=== PATIENT | female | born 1960 | race Two or more races ===

== ENCOUNTER 2017-08-08 05:38 | Inpatient (IN) | payer BC ==
[~2017-08-08] VITALS: Ht 152.4 cm; Wt 78.9 kg
[2017-08-08] VITALS (13 sets, daily range): BP systolic 120–144; BP diastolic 69–78
[2017-08-08] MEDS ORDERED: oxyCONTIN 20mg tab ORAL ONE (06:00)
[2017-08-08] MEDS ORDERED: ceFAZolin 1gm in D5W 55ml IVP ONE (06:00)
[2017-08-08] MEDS ORDERED: celeBREX 200mg Cap **SURGERY PATIENTS ONLY ORAL ONE ×3 (06:00→06:03)
[2017-08-08] MEDS ORDERED: CRESTOR10 M1 ORAL (06:19)
[2017-08-08] MEDS ORDERED: LEXAPRO5 MG ORAL (06:19)
[2017-08-08] MEDS ORDERED: NeoSporin Gu Irrig 1ml Amp IRRIG ONE (06:28)
[2017-08-08] MEDS ORDERED: Bacitracin 50000 Units Vial ONE (06:28)
[2017-08-08] MEDS ORDERED: cloNIDine 1000mcg/10ml inj ONE (06:46)
[2017-08-08] MEDS ORDERED: Bupivacaine 0.5% Inj 30 ml vial INJ ONE (06:47)
--- NOTE | 2017-08-08 06:54 | Pre-Procedure Note/Attestation ---
Pre-Procedure Note/Attestation Complete Prior to Procedure Planned Procedure: right Procedure Narrative: Rt tka Indications for Procedure Pre-Operative Diagnosis: Rt knee arthritis Attestation I attest that I discussed the nature of the procedure; its benefits; risks and complications; and alternatives (and the risks and benefits of such alternatives ), prior to the procedure, with the patient (or the patient's legal international representative). I attest that, if there was a reasonable possibility of needing a blood transfusion, the patient (or the patient's legal international representative) was given the [facility] standardized written summary, pursuant to the Loy Yarely Blood Safety Act ([place] Health and Safety Code # 1645, as amended). I attest that I re-evaluated the patient just prior to the surgery and that there has been no change in the patient's H&P, except as documented below: NONE BRIANA CALVIN Aug 08, 2017 06:54
[2017-08-08] MEDS ORDERED: Ropivacaine 5mg/ml Vial 20ml INJ ONE (06:56)
[2017-08-08] MEDS ORDERED: Tranexamic Acid 1,000 MG in NS 65 ML IVPB ONE (07:11)
[2017-08-08] MEDS ORDERED: Norco 7.5mg/325mg tab ORAL PRN ×2 (07:15→08:00)
[2017-08-08] MEDS ORDERED: Milk of Magnesia 30ml Ud ORAL PRN (07:15)
[2017-08-08] MEDS ORDERED: Propofol 1,000mg/ 100ml btl IV ONE (07:30)
[2017-08-08] MEDS ORDERED: LR 1000ml 1,000 ML IVLG SCH (07:51)
--- NOTE | 2017-08-08 07:51 | Anethesia Preoperative Eval ---
Anesthesia Pre-op PMH/ROS General Date of Evaluation: Aug 08, 2017 Time of Evaluation: 06:56 Anesthesiologist: Jennifer ASA Score: ASA 3 Mallampati Score Class I : Soft palate, uvula, fauces, pillars visible Class II: Soft palate, uvula, fauces visible Class III: Soft palate, base of uvula visible Class IV: Only hard plate visible Mallampati Classification: Class II Surgeon: Neva Diagnosis: R Knee Pain Surgical Procedure: R Knee Total Arthroplasty Anesthesia History: none Family History: no anesthesia problems Allergies: Coded Allergies: No Known Allergies (Unverified , 08/07/17) Medications: see eMAR Past Medical History Cardiovascular: Reports: HTN, other - HL Neurologic/Psychiatric: Reports: depression/anxiety Other: obesity - BMI 34 PSxH Narrative: Hernia X2, R shoulder SX, R Bunionectomy Anesthesia Pre-op Phys. Exam Physician Exam Last Vital Signs Date Time Temp Pulse Resp B/P (MAP) Pulse Ox O2 Delivery O2 Flow Rate FiO2 08/08/17 06:17 98.7 82 17 142/77 98 Room Air Constitutional: NAD Neurologic: CN 2-12 intact Cardiovascular: RRR Respiratory: CTA Gastrointestinal: S/NT/ND Airway Exam Mallampati Score: Class II MO: limited ROM: limited Teeth: intact Anesthesia Pre-op A/P Risk Assessment & Plan Assessment: ASA 3 Plan: GA, Spinal, R Adductor Block Status Change Before Surgery: No Pre-Antibiotics Dru Gram Ancef Iv Given Within 1 Hr of Incision: Yes Time Given: 07:24 Hugo Rodriguez MD Aug 08, 2017 07:51
--- NOTE | 2017-08-08 07:53 | Immediate Post-Op Evaluation ---
Immediate Post-Op Evalulation Immediate Post-Op Evalulation Procedure: R Knee Total Arthroplasty Date of Evaluation: Aug 08, 2017 Time of Evaluation: 09:49 IV Fluids: 900 LR Blood Products: 0 Estimated Blood Loss: 25 Urinary Output: 200 Blood Pressure Systolic: 144 Blood Pressure Diastolic: 74 Pulse Rate: 90 Respiratory Rate: 16 O2 Sat by Pulse Oximetry: 100 Temperature (Fahrenheit): 98.6 Pain Score (1-10): 1 Nausea: No Vomiting: No Complications 0 Patient Status: awake, reacts, patent, extubated, none Hydration Status: adequate Dru Gram Ancef IV Given Within 1 Hr of Incision: Yes Time Given: 07:24 Hugo Rodriguez MD Aug 08, 2017 07:53
[2017-08-08] MEDS ORDERED: LORazepam Inj 2mg/ml 1ml IV PRN (08:00)
[2017-08-08] MEDS ORDERED: Ketorolac 60mg Inj IV PRN (08:00)
[2017-08-08] MEDS ORDERED: Norco 5mg/325mg tab ORAL PRN (08:00)
[2017-08-08] MEDS ORDERED: oxyCODONE HCL/Acetaminophen 5/325mg ORAL PRN (08:00)
[2017-08-08] MEDS ORDERED: Midazolam 2mg/2ml Inj IVP PRN (08:00)
[2017-08-08] MEDS ORDERED: Metoclopramide 10mg/2ml Inj IVP PRN (08:00)
[2017-08-08] MEDS ORDERED: Hydromorphone 0.5mg/0.5ml inj IVP PRN (08:00)
[2017-08-08] MEDS ORDERED: fentaNYL 100 mcg/2 mL IV PRN (08:00)
[2017-08-08] MEDS ORDERED: DiphenhydrAMINE 50mg/ml Inj IVP PRN (08:00)
[2017-08-08] MEDS ORDERED: Meperidine 25mg/0.5ml Inj (FOR RIGORS ONLY) IV PRN (08:00)
[2017-08-08] MEDS ORDERED: Atropine Inj 1mg/10ml Syr IV PRN (08:00)
[2017-08-08] MEDS ORDERED: Ketorolac 30mg Inj IV PRN (08:00)
[2017-08-08] MEDS ORDERED: Docusate 100mg cap ORAL SCH (09:00)
--- NOTE | 2017-08-08 09:28 | Brief Operative Note ---
Immediate Post Operative Note Operative Note Chief Complaint: rt knee pain Pre-op Diagnosis: rt knee arthritis Procedure: rt tka Post-op Diagnosis: same as pre-op Findings: consistent w/pre-op dx studies Surgeon: md ness Hairspring Assembler: negar salmeron Anesthesiologist: md natalie Anesthesia: general Specimen: yes Complications: none Condition: stable Fluids: NS Estimated Blood Loss: minimal Drains: none Implant(s) used?: Yes - Garcia and NephTRAY Oliveira Aug 08, 2017 09:28
--- NOTE | 2017-08-08 11:48 | Diagnostic Imaging Report ---
Indication: Pain 2 views of the right knee were obtained. Findings: Total knee prosthesis is present. Soft tissue and swelling noted indicative of the recent surgery. Alignment and position appear satisfactory. There is no fracture or other complications appreciated. Impression: Status post cemented total knee arthroplasty
[2017-08-08] MEDS: D5 1/2NS w/KCl 20mEq 1,000 ML IV SCH ×2 (12:20→22:33)
[2017-08-08] MEDS: oxyCONTIN 20mg tab ORAL SCH ×2 (12:41→21:23)
[2017-08-08] MEDS: Docusate 100mg cap ORAL SCH ×2 (12:41→18:00)
[2017-08-08] MEDS: ceFAZolin sod 1 GM in D5W 55 ML IV SCH ×2 (15:29→22:32)
--- NOTE | 2017-08-08 19:15 | Operative Note - Dictated ---
DATE OF OPERATION: 08/08/2017 Preoperative Diagnosis: Right knee end-stage arthritis with bone to bone medial compartmental wear as well as patellofemoral wear. Postoperative Diagnosis: Right knee end-stage arthritis with bone to bone medial compartment wear as well as patellofemoral wear. Procedure: Right total knee arthroplasty using Garcia and Nephew LEGION knee with size 5 Oxinium femur, size 4 tibial component, size 35 mm all-poly patellar component as well as 11 mm ultra cross-linked tibial insert. SURGEON: Dominguez Hooks M.D. ADVERTISING JOB TITLES: Leonora Hernandes PA-C. ANESTHESIOLOGIST: Hugo Rodriguez M.D. Anesthesia: Spinal anesthesia combined with adductor block for postoperative pain management. ESTIMATED BLOOD LOSS: Less than 50 mL. TOURNIQUET TIME: 70 minutes. COMPLICATIONS: None. Brief History: The patient is a pleasant 57-year-old female, who has had end-stage arthritis of the right knee. She has had severe pain, treated nonoperatively with physical therapy, anti-inflammatories as well as injections and she continued to have significant functional deficits and pain. After full discussion of the risks and benefits of surgery and complications associated with it including infection, bleeding, neurovascular complication, possibility of continued pain, possibility of loss of motion, possibility of need for revision surgery, possibility of infection requiring resection arthroplasty, possibility of DVT, PE, and other complications that may arise, she opted for surgical treatment as described above. Operative Procedure: The patient was brought to the operating table and was placed supine. All pressure points were well padded. Spinal anesthesia was induced and the right leg adductor block was performed. The right leg was then prepped and draped in usual sterile fashion and the right leg was exsanguinated. Tourniquet was inflated to 275 mmHg. Standard approach to the anterior knee was undertaken. The medial parapatellar arthrotomy was performed and the medial and lateral meniscectomy was performed. The deep fibers of MCL were released for alignment purposes. At this point, the ACL and PCL were resected and knee was flexed and patella was everted. Intramedullary access into the femur was obtained and intramedullary guide was placed in. A distal femoral cut was performed with 5 degrees of valgus. Once this was completed, measurements were made and size 5 appeared to be the right size. Using posterior reference guide, the femoral cutting guide was placed in about 3 degrees of external rotation and anterior, posterior, and chamfer cuts were performed without any complications. Once this was completed, trial femur was applied and there was excellent fit. This was lateralized slightly and the central notch was then reamed and using a box osteotome, the bone was resected. At this point, there was excellent fit of the femoral component and it was slightly lateralized. At this point, care was given to the tibia. Posterior, medial, and lateral retractors were placed in. The anterior tibial crest was palpated and marked for alignment purposes. The alignment was marked and using an extramedullary guide, the anatomical axis and posterior slope was recreated. The varus and valgus axis was checked with the extramedullary guide. A 9 mm was taken off the least involved side, which was the lateral side. A tibial cut was performed without any complication. At this point, multiple osteophytes from posterior aspect of the femur were removed and there were multiple loose fragments that were removed. Once this was completed, measurements were made and size 4 tibia appeared to be the right size. This was placed in about 3 degrees of external rotation and at this point, the tibial plate was then punched and central peg was punched without any complications. At this point, trialing was performed with femur and tibia in place with initially 9 mm and then an 11 mm tibial insert. There was full flexion, full extension, and excellent stability at zero, 30 degrees, 45 degrees, and 90 degrees with 11 mm poly. At this point, the trial components were removed and care was given to the patella. The patella measured 25 mm. At this point, a freehand patellar cut was performed without any complications. Approximately 14 mm patella was remaining. At this point, the patella measurements were made and 35 mm patella component appeared to be the right size. The peg holes were drilled and a trial was applied. At this point, the tibial component, femoral component, and patellar component along with an 11 mm poly were trialed. There was excellent range of motion and stability as described previously and there was excellent patellofemoral tracking. At this point, all trial components were removed. The knee was thoroughly irrigated using copious amounts of irrigation with Simpulse irrigation. The cement was mixed and the tibial component, femoral component, and patellar components were cemented without any complication. Again trialing was performed and 11 mm poly insert appeared to be the right size. Therefore, the #11 mm poly was then placed and locked in without any complication. All excess cement was removed and before insertion of poly, the knee was thoroughly irrigated again with Simpulse irrigation. Once this was completed, wounds were thoroughly irrigated using copious amount of fluid. The tourniquet was deflated and minimal amount of bleeders that were present were coagulated using electrocautery. The extensor mechanism was closed using #1 interrupted Vicryl suture. Subcutaneous tissue was closed using 2-0 Vicryl suture. Skin was closed using 3-0 Monocryl suture. A Dermabond was applied and sterile dressing was applied. The patient was taken to recovery room in stable condition. All lap counts and instrument counts were correct. Dominguez Hooks M.D. DR: BOBBY JOB#: [id number] CC: RINA
[2017-08-08] MEDS: Enoxaparin 30mg Inj SUBQ SCH (21:24)
[2017-08-09 00:35] VITALS: BP 108/66
[2017-08-09 04:30] VITALS: BP 132/79
--- NOTE | 2017-08-09 06:57 | 48 Hour Post Anesthesia Eval ---
Post Anesthesia Evaluation Procedure: R Knee Total Arthroplasty Date of Evaluation: Aug 09, 2017 Time of Evaluation: 06:33 Blood Pressure Systolic: 132 0: 74 Pulse Rate: 85 Respiratory Rate: 18 Temperature (Fahrenheit): 98.1 O2 Sat by Pulse Oximetry: 94 Airway: patent Nausea: No Vomiting: No Pain Intensity: 2 Hydration Status: adequate Cardiopulmonary Status: Stable Mental Status/LOC: patient returned to baseline Follow-up Care/Observations: 0 Post-Anesthesia Complications: 0 Follow-up care needed: N/A Hugo Rodriguez MD Aug 09, 2017 06:57
[2017-08-09 07:03] LABS: BASOPHILS % (AUTO) 0.3 % (0.0-2.0); LYMPHOCYTES % (AUTO) 12.4 % (20.0-45.0); MEAN CORPUSCULAR HGB CONC 33.8 G/DL (32.0-36.0); MEAN CORPUSCULAR VOLUME 89 FL (80-99); MEAN PLATELET VOLUME 6.4 FL (6.5-10.1); MONOCYTES % (AUTO) 10.6 % (1.0-10.0); NEUTROPHILS % (AUTO) 76.7 % (45.0-75.0); PLATELET COUNT 269 K/UL (150-450); RED BLOOD COUNT 3.79 M/UL (4.20-5.40); WHITE BLOOD COUNT 11.2 K/UL (4.8-10.8)
[2017-08-09 07:27] LABS: ALANINE AMINOTRANSFERASE 14 U/L (3-33); ALBUMIN/GLOBULIN RATIO 1.5 (1.0-2.7); ANION GAP 10 (5-15); ASPARTATE AMINO TRANSFERASE 14 U/L (5-40); CALCIUM 8.6 mg/dL (8.6-10.2); CARBON DIOXIDE 26 mEQ/L (20-30); CHLORIDE 101 mEQ/L (98-107); CREATININE 0.7 mg/dL (0.5-0.9); GLOMERULAR FILTRATION RATE > 60 mL/min (>60); HEMOLYSIS 0; POTASSIUM 5.4 mEQ/L (3.4-4.9); SODIUM 137 mEQ/L (135-145); TOTAL PROTEIN 6.3 g/dL (6.6-8.7)
[2017-08-09] MEDS: Docusate 100mg cap ORAL SCH ×3 (07:57→17:16)
[2017-08-09 08:00] VITALS: BP 116/68
[2017-08-09] MEDS: celeBREX 200mg Cap **SURGERY PATIENTS ONLY ORAL SCH (08:00)
[2017-08-09] MEDS: oxyCONTIN 20mg tab ORAL SCH ×2 (08:01→21:00)
[2017-08-09] MEDS: Enoxaparin 30mg Inj SUBQ SCH ×2 (08:07→21:00)
--- NOTE | 2017-08-09 08:17 | Orthopedic Progress Note ---
Orthopedic - Progress Note Subjective Symptoms: c/o post-op knee pain Additional Comments working with PT Objective Vital Signs Laboratory Tests Test 08/09/17 04:50 White Blood Count 11.2 K/UL (4.8-10.8) H Red Blood Count 3.79 M/UL (4.20-5.40) L Hemoglobin 11.4 G/DL (12.0-16.0) L Hematocrit 33.6 % (37.0-47.0) L Mean Corpuscular Volume 89 FL (80-99) Mean Corpuscular Hemoglobin 30.0 PG (27.0-31.0) Mean Corpuscular Hemoglobin Concent 33.8 G/DL (32.0-36.0) Red Cell Distribution Width 12.0 % (11.6-14.8) Platelet Count 269 K/UL (150-450) Mean Platelet Volume 6.4 FL (6.5-10.1) L Neutrophils (%) (Auto) 76.7 % (45.0-75.0) H Lymphocytes (%) (Auto) 12.4 % (20.0-45.0) L Monocytes (%) (Auto) 10.6 % (1.0-10.0) H Eosinophils (%) (Auto) 0.0 % (0.0-3.0) Basophils (%) (Auto) 0.3 % (0.0-2.0) Sodium Level 137 mEQ/L (135-145) Potassium Level 5.4 mEQ/L (3.4-4.9) H Chloride Level 101 mEQ/L (98-107) Carbon Dioxide Level 26 mEQ/L (20-30) Anion Gap 10 (5-15) Blood Urea Nitrogen 24 mg/dL (7-23) H Creatinine 0.7 mg/dL (0.5-0.9) Estimat Glomerular Filtration Rate > 60 mL/min (>60) Glucose Level 135 mg/dL (74-106) H Calcium Level 8.6 mg/dL (8.6-10.2) Total Bilirubin 0.2 mg/dL (0.0-1.2) Aspartate Amino Transf (AST/SGOT) 14 U/L (5-40) Alanine Aminotransferase (ALT/SGPT) 14 U/L (3-33) Alkaline Phosphatase 75 U/L (35-104) Total Protein 6.3 g/dL (6.6-8.7) L Albumin 3.8 g/dL (3.5-5.2) Globulin 2.5 g/dL Albumin/Globulin Ratio 1.5 (1.0-2.7) Last 24 Hour Vital Signs Date Time Temp Pulse Resp B/P (MAP) Pulse Ox O2 Delivery O2 Flow Rate FiO2 08/09/17 06:57 85 18 94 08/09/17 04:30 98.1 85 18 132/79 94 Room Air 08/09/17 00:35 98.7 82 18 108/66 96 Room Air 08/08/17 20:10 98.3 86 17 120/74 94 Nasal Cannula 2.0 08/08/17 15:49 97.6 89 20 130/76 97 Nasal Cannula 2.0 08/08/17 12:30 97.4 88 20 132/75 94 Nasal Cannula 2.0 08/08/17 12:02 97.3 95 20 131/74 95 Nasal Cannula 2.0 08/08/17 10:35 98.4 89 15 138/69 97 Nasal Cannula 3.0 08/08/17 10:30 91 14 129/74 97 Nasal Cannula 3.0 08/08/17 10:20 90 14 129/74 96 Nasal Cannula 3.0 08/08/17 10:10 90 15 139/78 96 Nasal Cannula 3.0 08/08/17 10:00 95 15 139/70 98 Nasal Cannula 3.0 08/08/17 09:50 91 12 142/75 98 Simple Mask 6.0 08/08/17 09:45 85 13 137/74 98 Simple Mask 6.0 08/08/17 09:39 90 16 100 08/08/17 09:38 98.7 90 15 144/74 99 Simple Mask 6.0 Wound: clean, dry, intact Drains: none Neuro Status: normal Vascular Status: normal Additional Comments Xray reviewed: excellent alignment and placement Assessment Post-op Diagnosis POD 1 Procedure Performed rt tka Plan Plan: PT, pain management, discharge plan - to rehab on monday. pt prefers [facility] Aug 09, 2017 08:17
[2017-08-09] MEDS ORDERED: D5 1/2NS 1,000 ML IV SCH (09:00)
[2017-08-09] MEDS ORDERED: Lidocaine 1% Plain 30 ml INJ ONE (10:51)
[2017-08-09] MEDS ORDERED: NS Irrig 1000ml ONE (10:51)
[2017-08-09] MEDS ORDERED: Alfentanil 2ml Inj ONE (10:51)
[2017-08-09] MEDS ORDERED: Sterile Water Irrig 1000ml IRRIG ONE (10:51)
[2017-08-09] MEDS ORDERED: Propofol 200mg/20ml IV ONE (10:51)
[2017-08-09] MEDS ORDERED: Dexamethasone 4mg/ml vial ONE (11:10)
[2017-08-09] MEDS ORDERED: Midazolam 2mg/2ml Inj ONE (11:11)
[2017-08-09 12:00] VITALS: BP 128/62
[2017-08-09] MEDS: Norco 5mg/325mg tab ORAL PRN (12:41)
[2017-08-09 16:00] VITALS: BP 111/64
--- NOTE | 2017-08-09 17:54 | History & Physical ---
History and Physical History & Physicial Dictated for Int Med-Dr Leon no. [id number]. BRAULIO GUZMAN Aug 09, 2017 17:53
[2017-08-09 20:14] VITALS: BP 128/74
[2017-08-09] MEDS: Atorvastatin 20mg tab ORAL SCH (22:22)
[2017-08-10 00:28] VITALS: BP 147/73
[2017-08-10 04:00] VITALS: BP 129/85
[2017-08-10] MEDS: Norco 5mg/325mg tab ORAL PRN (04:14)
[2017-08-10 07:01] LABS: BASOPHILS % (AUTO) 0.6 % (0.0-2.0); EOSINOPHILS % (AUTO) 0.1 % (0.0-3.0); LYMPHOCYTES % (AUTO) 18.8 % (20.0-45.0); MEAN CORPUSCULAR HEMOGLOBIN 28.2 PG (27.0-31.0); MEAN CORPUSCULAR HGB CONC 31.5 G/DL (32.0-36.0); MEAN CORPUSCULAR VOLUME 90 FL (80-99); MEAN PLATELET VOLUME 5.8 FL (6.5-10.1); MONOCYTES % (AUTO) 9.5 % (1.0-10.0); PLATELET COUNT 189 K/UL (150-450); RED BLOOD COUNT 3.47 M/UL (4.20-5.40); RED CELL DISTRIBUTION WIDTH 11.9 % (11.6-14.8); WHITE BLOOD COUNT 9.7 K/UL (4.8-10.8)
--- NOTE | 2017-08-10 07:11 | Orthopedic Progress Note ---
Orthopedic - Progress Note Subjective Symptoms: c/o post-op knee pain Additional Comments Doing well. slow with PT Objective Vital Signs Last 24 Hour Vital Signs Date Time Temp Pulse Resp B/P (MAP) Pulse Ox O2 Delivery O2 Flow Rate FiO2 08/10/17 04:00 97.9 79 18 129/85 98 Nasal Cannula 2.0 08/10/17 00:28 97.7 88 19 147/73 94 Nasal Cannula 2.0 08/09/17 20:14 97.9 85 19 128/74 96 Nasal Cannula 2.0 08/09/17 16:00 98.5 79 19 111/64 98 Nasal Cannula 2.0 08/09/17 12:00 98.2 79 19 128/62 98 Nasal Cannula 2.0 08/09/17 08:00 98.3 98 19 116/68 98 Room Air Wound: clean, dry, intact Drains: none Neuro Status: normal Additional Comments Able to dorsiflex the ankle. Wound ok Assessment Post-op Diagnosis Doing well s/p Right TKA Plan Plan: PT, pain management, discharge plan Additional Comments PT today. Anticipate Discharge to [facility] tomorrow. Dressing Changes. BRIANA CALVIN Aug 10, 2017 07:11
[2017-08-10 07:14] LABS: ANION GAP 8 (5-15); CALCIUM 8.9 mg/dL (8.6-10.2); CARBON DIOXIDE 30 mEQ/L (20-30); CHLORIDE 101 mEQ/L (98-107); CREATININE 0.5 mg/dL (0.5-0.9); GLOMERULAR FILTRATION RATE > 60 mL/min (>60); HEMOLYSIS 0; MAGNESIUM 1.8 mg/dL (1.7-2.5); PHOSPHORUS 2.7 mg/dL (2.5-4.8); POTASSIUM 4.3 mEQ/L (3.4-4.9); SODIUM 139 mEQ/L (135-145)
[2017-08-10 08:00] VITALS: BP 128/67
[2017-08-10] MEDS: Docusate 100mg cap ORAL SCH ×3 (08:41→18:08)
[2017-08-10] MEDS: Enoxaparin 30mg Inj SUBQ SCH ×2 (08:42→20:51)
[2017-08-10] MEDS: celeBREX 200mg Cap **SURGERY PATIENTS ONLY ORAL SCH (08:44)
[2017-08-10] MEDS: oxyCONTIN 20mg tab ORAL SCH ×2 (08:44→20:50)
--- NOTE | 2017-08-10 09:15 | History and Physical Report ---
DATE OF ADMISSION: 08/09/[address] Leon. Chief Complaint: The patient is a 57-year-old white female, who presents with a chief complaint of preoperative history and physical for right knee total arthroplasty. History Of Present Illness: The patient has a history of osteoarthritis of the right knee. The patient is scheduled for right total knee arthroplasty by Dr. Hooks. The patient is in fact status post right total knee arthroplasty on 08/08/2017. Consultation is for internal medicine. PAST MEDICAL HISTORY: Significant for, 1. Osteoarthritis of the right knee. 2. Hypercholesterolemia. 3. Depression. Past Surgical History: Significant for right shoulder rotator cuff tear repair. CURRENT MEDICATIONS: 1. Crestor 5 mg one tablet p.o. daily. 2. Lexapro 5 mg one tablet p.o. daily. ALLERGIES: Penicillin. Social History: The patient is a , however, has a boyfriend present. The patient denies tobacco or alcohol use. The patient works as an senior accountant cpa. Review Of Systems: Constitutional: The patient denies weight loss or weight gain. The patient denies fevers or chills. HEENT: The patient denies ear or throat pain. The patient denies headache. Cardiovascular: The patient denies palpitations or chest pain. Chest: The patient denies wheeze or shortness of breath. Abdomen: The patient denies nausea, vomiting, diarrhea, or constipation. Genitourinary: The patient denies dysuria or increased frequency of urination. Neuromuscular: The patient has osteoarthritis to the right knee as above. The patient denies seizures or generalized weakness. PHYSICAL EXAMINATION: Vital Signs: Temperature 98.7 degrees, respirations 18, pulse 82, and blood pressure 108/66. General: The patient is a well-developed and well-nourished white female, in no apparent distress. HEENT: Eyes, pupils are equal and responsive to light and accommodation. Extraocular movements are intact. NECK: Supple without lymphadenopathy. Chest: Lungs are clear to auscultation bilaterally without wheezes or rales. Cardiovascular: Regular rhythm and rate. S1 and S2 are normal without murmurs, rubs, or gallops. Abdomen: Soft, nontender, and nondistended. Positive bowel sounds. No evidence of hepatosplenomegaly. Currently, no rebound or guarding noted. Extremities: Negative for clubbing, cyanosis, or edema. The dressing on the right knee is clean and dry without serosanguineous discharge. Neurologic: Cranial nerves II through XII are grossly intact without focal deficits. Motor strength is 5/5 bilaterally. Deep tendon reflexes are 2+ plantar. Laboratory Studies: WBC 11.3, hemoglobin 11.4, hematocrit 33.6, and platelets 269,000. Sodium 137, potassium 5.4, chloride 101, CO2 26, BUN 24, creatinine 0.7, and glucose 135. ASSESSMENT: This is a 57-year-old white female. 1. Osteoarthritis of the right knee. 2. Hypercholesterolemia. 3. Major depression. TREATMENT: 1. Osteoarthritis of the right knee. The patient is status post right total knee arthroplasty on 08/08/[address] Hooks. We will follow recommendations of Orthopedics. The patient is currently using intravenous Dilaudid and oxycodone for pain control. We will follow recommendations of Orthopedic Surgery. 2. Hypercholesterolemia. Crestor is non-formulary at [facility]. The patient has been started on Lipitor for substitution. 3. Depression. Continue Lexapro as above. Van Simpson M.D. DR: JASBIR JOB#: [id number] CC:
[2017-08-10 12:00] VITALS: BP 134/68
[2017-08-10 16:00] VITALS: BP 139/66
--- NOTE | 2017-08-10 16:17 | Internal Med Progress Note ---
Subjective Date of Service: Aug 10, 2017 Physician Name Van Guzman Attending Physician Dominguez Hooks Current Medications Medications (Trade) Dose Ordered Sig/Shaka Route PRN Reason Start Time Stop Time Status Last Admin Dose Admin Acetaminophen (Tylenol) 650 mg Q4H PRN ORAL temp>100.2 or headache 08/08/17 07:15 09/07/17 07:14 Acetaminophen/ Hydrocodone Bitart ([place] 5/325) 2 tab Q4H PRN ORAL pain scores 4-10 08/08/17 07:15 08/15/17 07:14 08/10/17 04:14 Acetaminophen/ Hydrocodone Bitart ([place] 7.5/325) 1 ea Q4H PRN ORAL Mild Pain (Pain Scale 1-3) 08/08/17 07:15 08/15/17 07:14 Atorvastatin Calcium (Lipitor) 20 mg BEDTIME ORAL 08/09/17 21:00 09/08/17 20:59 08/09/17 22:22 Celecoxib (CeleBREX) 200 mg DAILY ORAL 08/09/17 09:00 09/08/17 08:59 08/10/17 08:44 Diphenhydramine HCl (Benadryl) 25 mg Q6H PRN ORAL Itching 08/09/17 09:00 09/08/17 08:59 08/10/17 08:46 Docusate Sodium (Colace) 100 mg THREE TIMES A DAY ORAL 08/08/17 13:00 09/07/17 12:59 08/10/17 13:46 Enoxaparin Sodium (Lovenox) 30 mg EVERY 12 HOURS SUBQ 08/08/17 22:00 08/22/17 21:59 08/10/17 08:42 Escitalopram Oxalate (Lexapro) 5 mg DAILY ORAL 08/08/17 22:00 09/07/17 21:59 08/10/17 08:41 Ferrous Sulfate (Feosol) 325 mg THREE TIMES A DAY ORAL 08/08/17 13:00 09/07/17 12:59 08/10/17 13:42 Hydromorphone HCl (Dilaudid) 2 mg Q3H PRN SUBQ Severe Pain (Pain Scale 7-10) 08/08/17 07:15 08/15/17 07:14 08/09/17 19:18 Hydromorphone HCl (Dilaudid) 2 mg Q4H PRN SUBQ Moderate Pain (Pain Scale 4-6) 08/08/17 07:15 08/15/17 07:14 Magnesium Hydroxide (Mom) 30 ml DAILY PRN ORAL Constipation 08/08/17 07:15 09/07/17 07:14 Ondansetron HCl (Zofran) 4 mg EVERY 6 HOURS PRN IVP Nausea & Vomiting 08/08/17 07:15 09/07/17 07:14 Oxycodone HCl (OxyCONTIN) 20 mg EVERY 12 HOURS ORAL 08/08/17 11:30 08/15/17 11:29 08/10/17 08:44 Temazepam (Restoril) 7.5 mg HSPRN PRN ORAL Insomnia 08/08/17 07:15 08/15/17 07:14 Allergies: Coded Allergies: No Known Allergies (Unverified , 08/07/17) ROS Limited/Unobtainable: No Constitutional: Reports: no symptoms HEENT: Reports: no symptoms Cardiovascular: Reports: no symptoms Respiratory: Reports: no symptoms Gastrointestinal/Abdominal: Reports: no symptoms Genitourinary: Reports: no symptoms Neurologic/Psychiatric: Reports: no symptoms Subjective 57 YO F admitted with osteoarthritis right knee. S/P total right knee arthroplasty on 08/08/17. Cover for Int Med-Dr Wolfe. Objective Last Vital Signs Date Time Temp Pulse Resp B/P (MAP) Pulse Ox O2 Delivery O2 Flow Rate FiO2 08/10/17 12:00 98.9 81 19 134/68 95 Nasal Cannula 2.0 Laboratory Tests Test 08/10/17 06:30 White Blood Count 9.7 K/UL (4.8-10.8) Red Blood Count 3.47 M/UL (4.20-5.40) L Hemoglobin 9.8 G/DL (12.0-16.0) L Hematocrit 31.1 % (37.0-47.0) L Mean Corpuscular Volume 90 FL (80-99) Mean Corpuscular Hemoglobin 28.2 PG (27.0-31.0) Mean Corpuscular Hemoglobin Concent 31.5 G/DL (32.0-36.0) L Red Cell Distribution Width 11.9 % (11.6-14.8) Platelet Count 189 K/UL (150-450) Mean Platelet Volume 5.8 FL (6.5-10.1) L Neutrophils (%) (Auto) 71.0 % (45.0-75.0) Lymphocytes (%) (Auto) 18.8 % (20.0-45.0) L Monocytes (%) (Auto) 9.5 % (1.0-10.0) Eosinophils (%) (Auto) 0.1 % (0.0-3.0) Basophils (%) (Auto) 0.6 % (0.0-2.0) Sodium Level 139 mEQ/L (135-145) Potassium Level 4.3 mEQ/L (3.4-4.9) Chloride Level 101 mEQ/L (98-107) Carbon Dioxide Level 30 mEQ/L (20-30) Anion Gap 8 (5-15) Blood Urea Nitrogen 17 mg/dL (7-23) Creatinine 0.5 mg/dL (0.5-0.9) Estimat Glomerular Filtration Rate > 60 mL/min (>60) Glucose Level 126 mg/dL (74-106) H Calcium Level 8.9 mg/dL (8.6-10.2) Phosphorus Level 2.7 mg/dL (2.5-4.8) Magnesium Level 1.8 mg/dL (1.7-2.5) Microbiology Date/Time Source Procedure Growth Status 08/08/17 06:05 Nasal Nares MRSA Culture - Final NO METHICILLIN RESISTANT STAPH AUREUS... Complete Intake and Output 08/10/17 08/11/17 19:00 07:00 Intake Total 590 ml Output Total 400 ml Balance 190 ml Intake Oral 590 ml Output Urine Total 400 ml # Voids 1 Objective General: alert, cooperative, no distress, appears stated age Head: normocephalic, without obvious abnormality, atraumatic Eyes: conjunctivae/corneas clear. PERRL, EOM's intact Throat: lips, mucosa, and tongue normal. MMM Neck: supple, symmetrical, trachea midline, and no JVD Lungs: clear to auscultation bilaterally Heart: regular rate and rhythm, S1, S2 normal, no murmur, click, rub or gallop Abdomen: soft, non-tender, non-distended, bowel sounds normal; no masses or organomegaly Extremities: extremities normal, atraumatic, no cyanosis or edema Pulses: 2+ and symmetric Skin: skin color, texture, turgor normal; no rashes or lesions Neurologic: grossly normal, no focal deficits Assessment/Plan Problem List: (1) Osteoarthritis of right knee Assessment & Plan: S/P tot knee arthroplasty on 08/08/17. (2) Hypercholesteremia (3) Depression (4) Post-operative state Assessment & Plan: Pain management. Physical therapy Status: progressing Assessment/Plan Discharge to [facility] 08/11/17. VAN GUZMAN Aug 10, 2017 16:17
[2017-08-10 20:00] VITALS: BP 145/64
[2017-08-10] MEDS: Atorvastatin 20mg tab ORAL SCH (20:49)
[2017-08-11] VITALS: BP 116/77
[2017-08-11] MEDS: Norco 5mg/325mg tab ORAL PRN ×2 (01:25→18:16)
[2017-08-11 04:00] VITALS: BP 130/68
[2017-08-11 05:43] LABS: BASOPHILS % (AUTO) 0.8 % (0.0-2.0); EOSINOPHILS % (AUTO) 0.7 % (0.0-3.0); LYMPHOCYTES % (AUTO) 37.1 % (20.0-45.0); MEAN CORPUSCULAR HEMOGLOBIN 28.2 PG (27.0-31.0); MEAN CORPUSCULAR VOLUME 88 FL (80-99); MEAN PLATELET VOLUME 5.5 FL (6.5-10.1); MONOCYTES % (AUTO) 7.7 % (1.0-10.0); NEUTROPHILS % (AUTO) 53.8 % (45.0-75.0); PLATELET COUNT 194 K/UL (150-450); RED BLOOD COUNT 3.29 M/UL (4.20-5.40); RED CELL DISTRIBUTION WIDTH 12.4 % (11.6-14.8); WHITE BLOOD COUNT 8.3 K/UL (4.8-10.8)
[2017-08-11 07:05] LABS: CHLORIDE 104 mEQ/L (98-107); POTASSIUM 4.1 mEQ/L (3.4-4.9); SODIUM 143 mEQ/L (135-145)
[2017-08-11 07:26] LABS: ANION GAP 7 (5-15); CALCIUM 8.4 mg/dL (8.6-10.2); CARBON DIOXIDE 32 mEQ/L (20-30); CREATININE 0.5 mg/dL (0.5-0.9); GLOMERULAR FILTRATION RATE > 60 mL/min (>60); HEMOLYSIS 1
[2017-08-11 08:00] VITALS: BP 121/71
--- NOTE | 2017-08-11 08:24 | Orthopedic Progress Note ---
Orthopedic - Progress Note Subjective Symptoms: improved Objective Vital Signs Laboratory Tests Test 08/11/17 05:20 White Blood Count 8.3 K/UL (4.8-10.8) Red Blood Count 3.29 M/UL (4.20-5.40) L Hemoglobin 9.3 G/DL (12.0-16.0) L Hematocrit 29.0 % (37.0-47.0) L Mean Corpuscular Volume 88 FL (80-99) Mean Corpuscular Hemoglobin 28.2 PG (27.0-31.0) Mean Corpuscular Hemoglobin Concent 32.0 G/DL (32.0-36.0) Red Cell Distribution Width 12.4 % (11.6-14.8) Platelet Count 194 K/UL (150-450) Mean Platelet Volume 5.5 FL (6.5-10.1) L Neutrophils (%) (Auto) 53.8 % (45.0-75.0) Lymphocytes (%) (Auto) 37.1 % (20.0-45.0) Monocytes (%) (Auto) 7.7 % (1.0-10.0) Eosinophils (%) (Auto) 0.7 % (0.0-3.0) Basophils (%) (Auto) 0.8 % (0.0-2.0) Sodium Level 143 mEQ/L (135-145) Potassium Level 4.1 mEQ/L (3.4-4.9) Chloride Level 104 mEQ/L (98-107) Carbon Dioxide Level 32 mEQ/L (20-30) H Anion Gap 7 (5-15) Blood Urea Nitrogen 14 mg/dL (7-23) Creatinine 0.5 mg/dL (0.5-0.9) Estimat Glomerular Filtration Rate > 60 mL/min (>60) Glucose Level 111 mg/dL (74-106) H Calcium Level 8.4 mg/dL (8.6-10.2) L Last 24 Hour Vital Signs Date Time Temp Pulse Resp B/P (MAP) Pulse Ox O2 Delivery O2 Flow Rate FiO2 08/11/17 04:00 97.9 80 18 130/68 94 Room Air 08/11/17 02:24 98.8 08/11/17 00:00 98.2 96 19 116/77 96 Room Air 08/10/17 21:49 98.8 08/10/17 20:00 98.3 96 18 145/64 96 Room Air 08/10/17 16:00 98.8 81 19 139/66 96 Room Air 08/10/17 12:00 98.9 81 19 134/68 95 Nasal Cannula 2.0 Wound: clean, dry, intact Drains: none Neuro Status: normal Vascular Status: normal Assessment Post-op Diagnosis POD 3 Procedure Performed rt tka Plan Plan: discharge plan - to rehab today. pt toured [facility] last weeked, staff there confirmed they take her ins and they would have a bed for her. deckhand sponge boat to coordinate d/c for today. janes Roth 2 weeks TRAY FENTON Aug 11, 2017 08:24
[2017-08-11] MEDS: Docusate 100mg cap ORAL SCH ×3 (08:26→18:15)
[2017-08-11] MEDS: oxyCONTIN 20mg tab ORAL SCH (08:27)
[2017-08-11] MEDS: celeBREX 200mg Cap **SURGERY PATIENTS ONLY ORAL SCH (08:28)
[2017-08-11] MEDS: Enoxaparin 30mg Inj SUBQ SCH (08:29)
[2017-08-11 12:00] VITALS: BP 129/71
[2017-08-11] MEDS ORDERED: Tubing IV Secondary IV ONE (15:03)
[2017-08-11 16:00] VITALS: BP 124/66
--- NOTE | 2017-08-11 17:30 | Internal Med Progress Note ---
Subjective Date of Service: Aug 11, 2017 Physician Name Van Guzman Attending Physician Dominguez Hooks Current Medications Medications (Trade) Dose Ordered Sig/Shaka Route PRN Reason Start Time Stop Time Status Last Admin Dose Admin Acetaminophen (Tylenol) 650 mg Q4H PRN ORAL temp>100.2 or headache 08/08/17 07:15 09/07/17 07:14 Acetaminophen/ Hydrocodone Bitart ([place]ton 5/325) 2 tab Q4H PRN ORAL pain scores 4-10 08/08/17 07:15 08/15/17 07:14 08/11/17 01:25 Acetaminophen/ Hydrocodone Bitart ([place]ton 7.5/325) 1 ea Q4H PRN ORAL Mild Pain (Pain Scale 1-3) 08/08/17 07:15 08/15/17 07:14 Atorvastatin Calcium (Lipitor) 20 mg BEDTIME ORAL 08/09/17 21:00 09/08/17 20:59 08/10/17 20:49 Celecoxib (CeleBREX) 200 mg DAILY ORAL 08/09/17 09:00 09/08/17 08:59 08/11/17 08:28 Diphenhydramine HCl (Benadryl) 25 mg Q6H PRN ORAL Itching 08/09/17 09:00 09/08/17 08:59 08/10/17 08:46 Docusate Sodium (Colace) 100 mg THREE TIMES A DAY ORAL 08/08/17 13:00 09/07/17 12:59 08/11/17 13:21 Enoxaparin Sodium (Lovenox) 30 mg EVERY 12 HOURS SUBQ 08/08/17 22:00 08/22/17 21:59 08/11/17 08:29 Escitalopram Oxalate (Lexapro) 5 mg DAILY ORAL 08/08/17 22:00 09/07/17 21:59 08/11/17 08:26 Ferrous Sulfate (Feosol) 325 mg THREE TIMES A DAY ORAL 08/08/17 13:00 09/07/17 12:59 08/11/17 13:21 Hydromorphone HCl (Dilaudid) 2 mg Q3H PRN SUBQ Severe Pain (Pain Scale 7-10) 08/08/17 07:15 08/15/17 07:14 08/09/17 19:18 Hydromorphone HCl (Dilaudid) 2 mg Q4H PRN SUBQ Moderate Pain (Pain Scale 4-6) 08/08/17 07:15 08/15/17 07:14 Magnesium Hydroxide (Mom) 30 ml DAILY PRN ORAL Constipation 08/08/17 07:15 09/07/17 07:14 Ondansetron HCl (Zofran) 4 mg EVERY 6 HOURS PRN IVP Nausea & Vomiting 08/08/17 07:15 09/07/17 07:14 Oxycodone HCl (OxyCONTIN) 20 mg EVERY 12 HOURS ORAL 08/08/17 11:30 08/15/17 11:29 08/11/17 08:27 Temazepam (Restoril) 7.5 mg HSPRN PRN ORAL Insomnia 08/08/17 07:15 08/15/17 07:14 Allergies: Coded Allergies: No Known Allergies (Unverified , 08/07/17) ROS Limited/Unobtainable: No Constitutional: Reports: no symptoms HEENT: Reports: no symptoms Cardiovascular: Reports: no symptoms Respiratory: Reports: no symptoms Gastrointestinal/Abdominal: Reports: no symptoms Genitourinary: Reports: no symptoms Neurologic/Psychiatric: Reports: no symptoms Subjective 57 YO F admitted with osteoarthritis right knee. S/P total right knee arthroplasty on 08/08/17. Cover for [facility] Med-Dr Wolfe. Await transfer to [facility] today Objective Last Vital Signs Date Time Temp Pulse Resp B/P (MAP) Pulse Ox O2 Delivery O2 Flow Rate FiO2 08/11/17 16:00 98.8 77 19 124/66 95 Room Air 08/10/17 12:00 2.0 Laboratory Tests Test 08/11/17 05:20 White Blood Count 8.3 K/UL (4.8-10.8) Red Blood Count 3.29 M/UL (4.20-5.40) L Hemoglobin 9.3 G/DL (12.0-16.0) L Hematocrit 29.0 % (37.0-47.0) L Mean Corpuscular Volume 88 FL (80-99) Mean Corpuscular Hemoglobin 28.2 PG (27.0-31.0) Mean Corpuscular Hemoglobin Concent 32.0 G/DL (32.0-36.0) Red Cell Distribution Width 12.4 % (11.6-14.8) Platelet Count 194 K/UL (150-450) Mean Platelet Volume 5.5 FL (6.5-10.1) L Neutrophils (%) (Auto) 53.8 % (45.0-75.0) Lymphocytes (%) (Auto) 37.1 % (20.0-45.0) Monocytes (%) (Auto) 7.7 % (1.0-10.0) Eosinophils (%) (Auto) 0.7 % (0.0-3.0) Basophils (%) (Auto) 0.8 % (0.0-2.0) Sodium Level 143 mEQ/L (135-145) Potassium Level 4.1 mEQ/L (3.4-4.9) Chloride Level 104 mEQ/L (98-107) Carbon Dioxide Level 32 mEQ/L (20-30) H Anion Gap 7 (5-15) Blood Urea Nitrogen 14 mg/dL (7-23) Creatinine 0.5 mg/dL (0.5-0.9) Estimat Glomerular Filtration Rate > 60 mL/min (>60) Glucose Level 111 mg/dL (74-106) H Calcium Level 8.4 mg/dL (8.6-10.2) L Intake and Output 08/11/17 08/12/17 19:00 07:00 Intake Total 480 ml Balance 480 ml Intake Oral 480 ml # Voids 2 Objective General: alert, cooperative, no distress, appears stated age Head: normocephalic, without obvious abnormality, atraumatic Eyes: conjunctivae/corneas clear. PERRL, EOM's intact Throat: lips, mucosa, and tongue normal. MMM Neck: supple, symmetrical, trachea midline, and no JVD Lungs: clear to auscultation bilaterally Heart: regular rate and rhythm, S1, S2 normal, no murmur, click, rub or gallop Abdomen: soft, non-tender, non-distended, bowel sounds normal; no masses or organomegaly Extremities: extremities normal, atraumatic, no cyanosis or edema Pulses: 2+ and symmetric Skin: skin color, texture, turgor normal; no rashes or lesions Neurologic: grossly normal, no focal deficits Assessment/Plan Problem List: (1) Osteoarthritis of right knee Assessment & Plan: S/P tot knee arthroplasty on 08/08/17. (2) Hypercholesteremia (3) Depression (4) Post-operative state Assessment & Plan: Pain management. Physical therapy Status: stable Assessment/Plan Discharge to [facility] today 08/11/17. VAN GUZMAN Aug 11, 2017 17:30
--- NOTE | 2017-08-11 18:30 | Discharge Summary 2 SIG ---
DATE OF ADMISSION: 08/08/2017 DATE OF DISCHARGE: 08/11/2017 History: The patient is a very pleasant 57-year-old female, who was admitted after right total knee arthroplasty which was performed on 08/08/2017. The patient had a benign hospital course where she required no blood transfusions. She was monitored by Internal Medicine, Dr. Simpson and was seen by Physical therapy during her stay. At date of discharge, she was ambulating well with physical therapy. She had well controlled pain. She was eating well. She had stable vital signs and stable laboratory work throughout her stay. X-rays had been ordered after surgery and the wound had been monitored and dressed without issue. Physical Examination: On date of discharge, the patient is alert and oriented, in bed asking to get up and get to the chair. She has a clean dressing, which is dry and intact and she is neurovascularly intact of the lower leg. DISCHARGE DIAGNOSIS: Status post right total knee arthroplasty. Discussion: At this time, we will discharge the patient to [facility] for short-term rehabilitation stay at which point, she will be discharged home with appropriate home care and durable medical equipment as needed. She is to continue Lovenox for full 14 days. She can continue CPM machine with a goal of 130 degrees of flexion. Her dressing can be changed as needed and she can continue to be weightbearing as tolerated. She has pain medication to use as needed. We will follow up with her and see her in the office for postoperative management in one to two weeks after discharge. Dominguez Hooks M.D. I have been assigned to dictate discharge summary on this account and I was not involved in the patient's management. Zeeshan Worrell DR: MARIA DEL ROSARIO JOB#: [id number] CC:
--- NOTE | 2017-08-14 14:55 | Discharge Summary ---
Discharge Summary Hospital Course Date of Admission Aug 08, 2017 at 05:38 Date of Discharge Aug 11, 2017 at 19:50 Admitting Diagnosis end stage arthritis Reason for Hospitalization: elective surgery HPI Parag Hyman is a 57 year old female who was admitted on Aug 08, 2017 at 05:38 for Rt Knee Osteoarthritis Consultations dr Simpson - DEISI Procedures s/p 08/08 Right total knee arthroplasty using [employer]GION knee with size 5 Oxinium femur, size 4 tibial component, size 35 mm all-poly patellar component as well as 11 mm ultra cross-linked tibial insert. Hospital Course course of recovery unremarkable pain management, controlled IS at the bedside while in the bed, encourage to use dressing C/D/I wound care voided freely tolerated diet walked with PT assistance stable for dc and fup as outpatient with surgeon as advised DISCHARGE DIAGNOSIS Right knee end-stage arthritis with bone to bone medial compartment wear and patellofemoral wear. s/p right total knee replacement Discharge Medications Continued Medications: Escitalopram Oxalate (Lexapro) 5 Mg Tablet 5 MG ORAL DAILY, TAB Rosuvastatin Calcium (Crestor) 5 Mg Tablet 5 MG ORAL DAILY, TAB Discharge Condition Upon Discharge: stable Discharge Disposition Patient was discharged to SNF/Subacute Facility(03) Discharge Diagnoses: Discharge Instructions Discharge Instructions Special Instructions I have been assigned to complete a D/C Summary on this account. I was not involved in the patient management Amna Lentz NP (Vanchtein) Aug 14, 2017 14:55
== END 2017-08-11 19:50 | DRG 470 ==
LOC: SDSOVERFLO 05:38 → 3E 11:51
PROC: 0SRC069 Replacement of Right Knee Joint with Oxidized Zirconium on Polyethylene Synthetic Substitute, Cemented, Open Approach (ICD-10-PCS; principal; 2017-08-08 07:00)
DX: M17.11 Unilateral primary osteoarthritis, right knee (principal); F32.9 Major depressive disorder, single episode, unspecified; E78.00 Pure hypercholesterolemia, unspecified
CPT/HCPCS: 36415; 80048; 80053; 83735; 84100; 85025; 86850; 86900; 86901; 86920; 87081; 94003; 94150; J2250; J2405; J3490

== ENCOUNTER 2017-08-22 12:44 | Outpatient (CLI) | payer BC ==
[~2017-08-22 12:44] MED LIST: CRESTOR10 M1 ORAL; LEXAPRO5 MG ORAL
--- NOTE | 2017-08-23 23:30 | Diagnostic Imaging Report ---
APPROVED REPORT CPT Code: 86968 Present Symptoms Comments: Post status right total knee Arthroplasty (08/08/17) BILATERAL: Imaging reveals a patent deep venous system bilaterally. There is no evidence of thrombus within the femoral, popliteal or tibial segments. The greater saphenous veins are also within normal limits. Doppler indicates normal spontaneous flow within these segments. Note: Incidental finding: Cystic, fluid-filled structure was noted around anterior right knee area, measuring (3.3 cm x 0.7 cm)
== END 2017-08-22 14:44 | disposition home or self-care (01) ==
LOC: VAS 12:44
DX: M17.11 Unilateral primary osteoarthritis, right knee (principal)
CPT/HCPCS: 93970